=== PATIENT | female | born 1970 | race Caucasian/White ===

== ENCOUNTER 2016-08-20 15:58 | Emergency (ER) | payer OTHER ==
[~2016-08-20] VITALS: Ht 162.6 cm; Wt 57.0 kg
[2016-08-20 16:01] VITALS: BP 117/81; PULSE 88; RESP 16; TEMP 97.6; O2SAT 100
[2016-08-20] MEDS ORDERED: NAPR500T PO (16:12)
[2016-08-20] MEDS ORDERED: ROBA750T PO (16:12)
[2016-08-20] MEDS ORDERED: TRAM50TA PO ×2 (16:15→16:22)
[2016-08-20] MEDS ORDERED: KETOROLAC TROMETHAMINE 60 MG/2 ML (IM) VIAL IM ONE (16:15)
[2016-08-20] MEDS ORDERED: DEXAMETHASONE SOD PHOS 20 MG/5 ML VIAL IM ONE (16:15)
[2016-08-20] MEDS ORDERED: DICL75TA PO (16:15)
[2016-08-20] MEDS ORDERED: LIDO1PAD52 TOPICAL (16:15)
--- NOTE | 2016-08-20 16:20 | PD ---
HPI Chief Complaint: Medication Refill Request Time Seen by Provider: 16:16 Travel History International Travel<30 days: No Contact w/Intl Traveler<30days: No Traveled to known affect area: No History of Present Illness HPI 46-year-old female that presents to the ED for evaluation of herniated disc. Per patient she was diagnosed with herniated disc about couple weeks ago and she had a MRI that shows this. Per patient she has an appointment with neurosurgeon on Thursday and she came here essentially to see if she could get up prescription for pain medication to hold her until then. Per patient she was given Robaxin as well as naproxen with some relief. Per patient she was given steroids that she believes helped the most with her pain. Per patient at this time she is crawling and has to lay in a certain way to prevent pain. She denies any recent injury. No other falls. She does already has appointment on Thursday but she has no PCP so she can get a refill on this. We'll also like to get something may be stronger to help with her pain for now. She has no neurological deficits. No problems with bowel movement or urine. Per patient he mainly affects the right lower back and right leg. PFSH Past Medical History Diminished Hearing: No Herniated Disk: Yes Immunizations Current: Yes Tetanus Vaccination: < 5 Years Influenza Vaccination: Yes ?: Not LMP: last week Social History Alcohol Use: No Tobacco Use: No Substance Use: No Allergies-Medications (Allergen,Severity, Reaction): Coded Allergies: No Known Allergies (Unverified , 08/20/16) Reported Meds & Prescriptions Reported Meds & Active Scripts Active Tramadol (Tramadol HCl) 50 Mg Tab 50 Mg PO Q6H PRN Reported Naproxen 500 Mg Tab 500 Mg PO BID Robaxin (Methocarbamol) 750 Mg Tab 750 Mg PO QID Review of Systems Except as stated in HPI: all other systems reviewed are Neg Physical Exam Narrative GENERAL: SKIN: Warm and dry. HEAD: Atraumatic. Normocephalic. EYES: Pupils equal and round. No scleral icterus. No injection or drainage. ENT: No nasal bleeding or discharge. Mucous membranes pink and moist. NECK: Trachea midline. No JVD. CARDIOVASCULAR: Regular rate and rhythm. RESPIRATORY: No accessory muscle use. Clear to auscultation. Breath sounds equal bilaterally. GASTROINTESTINAL: Abdomen soft, non-tender, nondistended. Hepatic and splenic margins not palpable. MUSCULOSKELETAL: Extremities without clubbing, cyanosis, or edema. No obvious deformities. Patient has full range of motion of the upper and lower extremities but she does have some straight leg test positive on the right side. 2+ pulses bilaterally. No obvious lumbar, thoracic, cervical spine tenderness to palpation. NEUROLOGICAL: Awake and alert. No obvious cranial nerve deficits. Motor grossly within normal limits. Five out of 5 muscle strength in the arms and legs. Normal speech. PSYCHIATRIC: Appropriate mood and affect; insight and judgment normal. Data Data Last Documented VS Vital Signs Date Time Temp Pulse Resp B/P Pulse Ox O2 Delivery O2 Flow Rate FiO2 08/20/16 16:01 97.6 88 16 117/81 100 Orders Ketorolac Inj (Toradol Inj) (08/20/16 16:15) Dexamethasone Inj (Decadron Inj) (08/20/16 16:15) MDM Medical Decision Making Medical Screen Exam Complete: Yes Emergency Medical Condition: Yes Medical Record Reviewed: Yes Differential Diagnosis Sciatica versus acute on chronic pain versus chronic pain versus herniated disc Narrative Course 46-year-old female that presents to the ED for evaluation of herniated disc pain. Patient was properly examined and was found to have signs and symptoms consistent with. This. Patient comes here with medical records showing that MRI that was done of her about a week ago that shows a needed this. Patient requesting refill of medication. This time I will give patient a dose of Toradol and dexamethasone to help with her acute pain now given a prescription for diclofenac sodium as well as lidocaine patch and tramadol for pain. She was instructed to follow closely with PCP or neurosurgeon. See ED worsening symptoms. Patient is agreeable with plan. Diagnosis Primary Impression: Herniated lumbar intervertebral disc Patient Instructions: General Instructions Additional Instructions: Take medications as prescribed. Follow-up with PCP. See ED for any worsening symptoms. Do not drink or drive while taking pain medication. Apply ice or heat as needed for pain Med/Other Pt SpecificInfo: Prescription(s) given Scripts Diclofenac Sodium DR 75 Mg Tabdr75 Mg PO BID PRN (PAIN SCALE 1 TO 10) #20 TAB Prov:Audrey Prince DO 08/20/16 Lidocaine Patch 12 HR 5 % Patch1 Patch TOPICAL DAILY PRN (PAIN) #1 BOX Ref 0 Remove patch after 12 hours Prov:Prince,Audrey DO 08/20/16 Tramadol 50 Mg Tab50 Mg PO Q6H PRN (PAIN) #20 TAB Ref 0 Prov:Audrey Prince DO 08/20/16 Disposition: 01 DISCHARGE HOME Condition: Stable Ricky Francisco Aug 20, 2016 16:20
== END 2016-08-20 16:33 | disposition home or self-care (01) ==
LOC: PHEFT 15:58
DX: M51.26 Other intervertebral disc displacement, lumbar region (principal)
CPT/HCPCS: 96372; 99281; J1100; J1885